=== PATIENT | male | born 1975 | race Caucasian/White ===

== ENCOUNTER 2020-07-27 14:10 | Emergency (ER) | payer SELFPAY ==
[2020-07-27] VITALS (10 sets, daily range): BP systolic 152–171; BP diastolic 83–104; PULSE 68–82; RESP 13–26; TEMP 37.1; O2SAT 97–100; BMI 29.5
--- NOTE | 2020-07-27 15:27 | ED.ANXIETY ---
HPI - Anxiety General Chief Complaint: Anxiety Stated Complaint: panic attack, alcohol withdrawal since AM Time Seen by Provider: 07/27/20 15:17 Source: patient Mode of arrival: Ambulatory Limitations: no limitations History of Present Illness HPI narrative: 44-year-old male comes to the emergency department with complaint of anxiety as well as alcohol abuse and maybe some withdrawal symptoms. Patient states he feels very anxious whenever he stops drinking and when he drinks it helps calm his anxiety. He does not appreciate any tremor, he has never had a loose tenacious or seizures. He states he has been drinking heavily for 19 years. He typically drinks a 5th of alcohol and 2 beers at least 5 nights weekly. He was able to stop for 33 days in August but subsequently relapsed. He is interested and stopping his alcohol use but prefers to do this at home. He states he is anxious but denies depression or suicidal ideation. Patient does describe anxiety about his health. He has not seen a physician in many years. He states with his anxiety he feels very nervous. He is concerned about his health and cirrhosis. He states his prior surgeries include excision of a large cyst in his axilla he denies any other prior surgeries. He states he smokes when he drinks on average this would be about 3 packs weekly, he states he uses marijuana but denies other recreational drugs. He stated he came to the ER today because it was either go to the store and buy a bottle of alcohol or come to the ER to get help. Related Data Previous Rx's Medication Instructions Recorded diazepam [Valium] 5 mg PO BEDTIME PRN #7 tab 07/27/20 Allergies Allergy/AdvReac Type Severity Reaction Status Date / Time No Known Drug Allergies Allergy Verified 07/27/20 14:12 Review of Systems Review of Systems ROS Unobtainable: All systems reviewed & are unremarkable except as noted in HPI and below Patient History Social History Smoking Status: Current some day smoker Smoking Status: Current some day smoker alcohol intake frequency: 3 or more drinks per day (fifth and 2 beers 5 x week.) Exam Narrative Exam Narrative: GEN: well nourished, male, alert and oriented x 3, patient appears to be in mild distress. Patient anxious. HEENT: Atraumatic, pupils are equal round reactive to light, extraocular movements are intact, nares are clear, TMs are clear with no fluid, there is no conjunctival pallor. Throat is clear without any exudates, erythema, tonsillar enlargement or uvular deviation HEART: Regular rate and rhythm without murmur, clicks, rubs. Pulses are equal in upper and lower extremities LUNGS:Lungs clear to auscultation, no wheezes, rales, crackles, chest moves symmetrically ABD:bowel sounds normal, soft, non-tender, no guarding, rebound, rigidity, no masses noted, no hepatosplenomegaly :No CVA tenderness MSCL: Non-tender, no muscle atrophy, muscles strength 5/5 upper and lower extremities, full range of motion, NEURO:CN 2-12 intact, sensation normal, no tremor appreciated, normal gait. PSYCH: anxiety, no suicidal ideation, no hallucinations. Initial Vital Signs Initial Vital Signs: Vital Signs Temperature 98.7 F 07/27/20 14:12 Pulse Rate 82 07/27/20 14:12 Respiratory Rate 18 07/27/20 14:12 Blood Pressure 171/104 H 07/27/20 14:12 Pulse Oximetry 100 07/27/20 14:12 Course Orders Ordered: ED Orders 07/27/20 14:15 EKG-12 Lead Stat 07/27/20 14:45 Complete Blood Count AUTO DIFF Stat Comprehensive Metabolic Panel Stat Ethanol (ETOH) Stat Lipase Stat Thyroid Stimulating Hormone Stat 07/27/20 15:50 Consult to COPING MACHINE ASSEMBLER - Summer Law Clerk Stat 07/27/20 15:56 Urine Drug Screen, Rapid Stat Vital Signs Vital signs: Vital Signs - 8 hr 07/27/20 14:12 07/27/20 14:46 07/27/20 14:47 Temperature 98.7 F Pulse Rate 82 82 78 Respiratory Rate 18 17 13 Blood Pressure 171/104 H 152/88 H Pulse Oximetry 100 100 99 07/27/20 15:00 07/27/20 15:30 07/27/20 16:00 Temperature Pulse Rate 75 69 73 Respiratory Rate 18 14 16 Blood Pressure 155/95 H 153/99 H Pulse Oximetry 100 99 99 07/27/20 16:30 07/27/20 16:46 07/27/20 17:00 Temperature Pulse Rate 68 74 73 Respiratory Rate 16 22 26 H Blood Pressure 162/83 H Pulse Oximetry 99 98 97 07/27/20 17:58 Temperature Pulse Rate 70 Respiratory Rate 18 Blood Pressure 159/99 H Pulse Oximetry 98 MDM - Anxiety Lab Data Result diagrams: 07/27/20 14:45 07/27/20 14:45 Labs: Lab Results 07/27/20 07/27/20 07/27/20 Range/Units 14:45 14:45 14:45 WBC 11.7 H (4.5-11.0) X10^3/uL RBC 4.77 (4.5-5.9) X10^6/uL Hgb 13.6 (13.5-17.5) g/dL Hct 41.3 (41-53) % MCV 86.7 (80-100) fL MCH 28.5 (26-34) PG MCHC 32.8 (30-36) % RDW 13.5 (11.6-14.8) % Plt Count 255 (150-400) X10^3/uL Neut % (Auto) 82.1 H (50-75) % Lymph % (Auto) 11.9 L (25-40) % Pacific % (Auto) 5.7 (3-14) % Eos % (Auto) 0.1 L (2-4) % Baso % (Auto) 0.2 (0-2) % Neut # (Auto) 9600 H (1788-7696) /uL Lymph # (Auto) 1400 (1984-8173) /uL Pacific # (Auto) 700 (0-900) /uL Eos # (Auto) 0 (0-450) /uL Baso # (Auto) 0 (0-100) /uL Sodium 134 L (137-145) mmol/L Potassium 3.9 (3.4-5.1) mmol/L Chloride 102 (98-107) mmol/L Carbon Dioxide 27 (22-32) mmol/L BUN 16 (9-20) mg/dL Creatinine 0.69 (0.66-1.25) mg/dL Estimated GFR > 60.0 (>60) mL/min BUN/Creatinine Ratio 23.2 H (6-22) Glucose 142 H (70-100) mg/dL Calcium 9.9 (8.4-10.2) mg/dL Total Bilirubin 0.7 (0.2-1.3) mg/dL AST 38 (17-59) IU/L ALT 37 (<50) IU/L Alkaline Phosphatase 69 (38-126) U/L Total Protein 7.8 (6.3-8.2) g/dL Albumin 4.8 (3.5-5.0) g/dL Globulin 3.0 (1.7-4.1) g/dL Albumin/Globulin Ratio 1.6 (1.0-2.8) Lipase 53 (23-300) U/L TSH 3.78 (0.47-4.68) uIU/mL U Opiates 300ng/mL cut (Negative) Ur Oxycodone Screen (Negative) Urine Methadone Screen (Negative) Ur Barbiturates Screen (Negative) U Tricyclic Antidepress (Negative) Ur Phencyclidine Scrn (Negative) Ur Amphetamines Screen (Negative) U Methamphetamines Scrn (Negative) Ur MDMA Scrn (Ecstasy) (Negative) U Benzodiazepines Scrn (Negative) Urine Cocaine Screen (Negative) U Marijuana (THC) Screen (Negative) Ethyl Alcohol < 10 ( - 10) mg/dL 07/27/20 Range/Units 15:56 WBC (4.5-11.0) X10^3/uL RBC (4.5-5.9) X10^6/uL Hgb (13.5-17.5) g/dL Hct (41-53) % MCV (80-100) fL MCH (26-34) PG MCHC (30-36) % RDW (11.6-14.8) % Plt Count (150-400) X10^3/uL Neut % (Auto) (50-75) % Lymph % (Auto) (25-40) % Pacific % (Auto) (3-14) % Eos % (Auto) (2-4) % Baso % (Auto) (0-2) % Neut # (Auto) (8173-7713) /uL Lymph # (Auto) (0713-9030) /uL Pacific # (Auto) (0-900) /uL Eos # (Auto) (0-450) /uL Baso # (Auto) (0-100) /uL Sodium (137-145) mmol/L Potassium (3.4-5.1) mmol/L Chloride (98-107) mmol/L Carbon Dioxide (22-32) mmol/L BUN (9-20) mg/dL Creatinine (0.66-1.25) mg/dL Estimated GFR (>60) mL/min BUN/Creatinine Ratio (6-22) Glucose (70-100) mg/dL Calcium (8.4-10.2) mg/dL Total Bilirubin (0.2-1.3) mg/dL AST (17-59) IU/L ALT (<50) IU/L Alkaline Phosphatase (38-126) U/L Total Protein (6.3-8.2) g/dL Albumin (3.5-5.0) g/dL Globulin (1.7-4.1) g/dL Albumin/Globulin Ratio (1.0-2.8) Lipase (23-300) U/L TSH (0.47-4.68) uIU/mL U Opiates 300ng/mL cut Negative (Negative) Ur Oxycodone Screen Negative (Negative) Urine Methadone Screen Negative (Negative) Ur Barbiturates Screen Negative (Negative) U Tricyclic Antidepress Negative (Negative) Ur Phencyclidine Scrn Negative (Negative) Ur Amphetamines Screen Negative (Negative) U Methamphetamines Scrn Negative (Negative) Ur MDMA Scrn (Ecstasy) Negative (Negative) U Benzodiazepines Scrn Negative (Negative) Urine Cocaine Screen Negative (Negative) U Marijuana (THC) Screen Positive H (Negative) Ethyl Alcohol ( - 10) mg/dL MDM Narrative Medical decision making narrative: 44 year old male with admitted alcohol abuse and description of anxiety. Unclear if he is having just anxiety or maybe a little bit of withdrawal in combination he states he does drink 2 calm his anxiety. He is not expressing interest in inpatient treatment but is interested in possibly prescription. We did discuss if he would be willing to chat with social Work about possible resources for mental health as well as outpatient detox resources. Patient seen by social work, offered multiple resources. We did review his labs his findings today. I encouraged him to follow up with primary care to help with his anxiety as well as his medical issues which he may have hypertension although this may be a little bit of withdrawal as well. He does not appear to be in active withdrawals. Plan for short course of benzodiazepine to help with anxiety/sleep which may also help with any withdrawal symptoms patient was encouraged not to take this medication if he is actively drinking alcohol. Discharge Plan Departure Patient Disposition: Home Clinical Impression: Alcohol abuse, continuous drinking behavior, Acute anxiety Instructions: DI for Alcohol Use Disorder Activity Restrictions/Additional Instructions: I recommend you follow-up with either the resources provided or primary care physician for assistance in stopping your alcohol use. Patient's will often benefit with some counseling or medication treatment for anxiety to help make you more successful in your goal of becoming sober. Take medication as prescribed, this medication can make you sleepy do not drive, perform hazardous activities or make any major decisions while taking it. Return to the ER for lightheadedness, passing out, severe chest pain, shortness of breath, persistent vomiting, black or bloody stools swelling of her extremities, seizures, hallucinations or other new or concerning symptoms. If you feel you need to go to [facility]. Call had of time ([phone]) to inquire about an available bed. If there are no beds called daily and 9 AM and 9 PM to check on bed availability. If you're feeling suicidal or having suicidal thoughts, contact the suicide hotline (this number is the resource/self referral number for community resources also). . [facility] cotact is [phone] for services. You may also contact Juan J bernstein manager social services for assistance or resources at [phone]. [email or web address] is also an online resource for findings counseling. Prescriptions: New diazepam [Valium] 5 mg tablet 5 mg PO BEDTIME PRN (Reason: sleep) Qty: 7 RF: 0
[2020-07-27 15:53] LABS: Add Manual Diff / Slide Review NO; Basophils Absolute Auto 0 /uL (0-100); Basophils Percent Auto 0.2 % (0-2); Eosinophils Absolute Auto 0 /uL (0-450); Eosinophils Percent Auto 0.1 % (2-4); Hematocrit 41.3 % (41-53); Hemoglobin 13.6 g/dL (13.5-17.5); Lymphocytes Absolute Auto 1400 /uL (1100-4500); Lymphocytes Percent Auto 11.9 % (25-40); Mean Corpuscular HGB Conc 32.8 % (30-36); Mean Corpuscular Hemoglobin 28.5 PG (26-34); Mean Corpuscular Volume 86.7 fL (80-100); Monocytes Absolute Auto 700 /uL (0-900); Monocytes Percent Auto 5.7 % (3-14); Neutrophils Absolute Auto 9600 /uL (1500-7000); Neutrophils Percent Auto 82.1 % (50-75); Platelet Count 255 X10^3/uL (150-400); Red Blood Cell Count 4.77 X10^6/uL (4.5-5.9); Red Cell Distribution Width 13.5 % (11.6-14.8); White Blood Cell Count 11.7 X10^3/uL (4.5-11.0)
[2020-07-27 15:59] LABS: Alanine Aminotransferase 37 IU/L (<50); Albumin 4.8 g/dL (3.5-5.0); Albumin Globulin Ratio 1.6 (1.0-2.8); Alkaline Phosphatase 69 U/L (38-126); Aspartate Aminotransferase 38 IU/L (17-59); BUN Creatinine Ratio 23.2 (6-22); Bilirubin Total 0.7 mg/dL (0.2-1.3); Blood Urea Nitrogen 16 mg/dL (9-20); Calcium 9.9 mg/dL (8.4-10.2); Carbon Dioxide 27 mmol/L (22-32); Chloride 102 mmol/L (98-107); Estimated Glomerular Filt Rate > 60.0 mL/min (>60); Ethanol (ETOH) < 10 mg/dL; Glucose 142 mg/dL (70-100); HEMOLYSIS < 15 (0-50); Lipase 53 U/L (23-300); Potassium 3.9 mmol/L (3.4-5.1); Sodium 134 mmol/L (137-145); Total Protein 7.8 g/dL (6.3-8.2)
[2020-07-27 16:12] LABS: Ur Creatinine Normal (Normal); Ur Specific Gravity Normal (Normal); Urine pH Normal (Normal)
[2020-07-27 16:13] LABS: UR Morphine/Opiate cutoff 300 Negative (Negative); Urine Amphetamines Negative (Negative); Urine Barbiturates Negative (Negative); Urine Benzodiazepines Negative (Negative); Urine Cocaine Negative (Negative); Urine MDMA Negative (Negative); Urine Methadone Negative (Negative); Urine Methamphetamines Negative (Negative); Urine Oxycodone Negative (Negative); Urine Phencyclidine Negative (Negative); Urine Tetrahydrocannabinol Positive (Negative); Urine Tricyclic Antidepressant Negative (Negative)
[2020-07-27 16:30] LABS: Thyroid Stimulating Hormone 3.78 uIU/mL (0.47-4.68)
--- NOTE | 2020-07-27 16:48 | PC.NURSE ---
Pt given water to drink. BEAM RACKER at bedside talking to pt.
--- NOTE | 2020-07-27 17:42 | CM.SWNOTE ---
DAY CARE DIRECTOR Assessment DAY CARE DIRECTOR - Music Leader Assessment DAY CARE DIRECTOR - Music Leader Assessment Start: 07/27/20 17:30 Freq: Status: Active Protocol: Document 07/27/20 17:30 SHELDON (Rec: 07/27/20 17:41 SHELDON [id number]) DAY CARE DIRECTOR/Music Leader Assessment Time Spent with Patient Start date 07/27/20 Visit Start Time 16:30 End date 07/27/20 Visit End Time 17:10 Total time Care Management spent on 40 patient visit-in minutes Substance Abuse Screening Include Onset, Duration, Intensity Presenting Problem Patient presents to ED due to anxiety and ETOH use/ withdrawal. Patient reports he has been a heavy drinker since age 18 and reports drinking 1 pint/daily of hard liquor. Patient states his ETOH use alleviates his anxiety when I'm drunk but he becomes very anxious after with a particular focus on his physical health. Precipitating Event(s) Patient became anxious after feeling some inflammation in his liver. Patient states he could not de-escalate from anxiety and came to the ED instead of buying more ETOH. Patient Strengths Patient is motivated to discontinue ETOH use and has done so in the past. Current Behavioral Health Provider(s) None Include Facility, Provider, Ph. # Family Hx of Behavioral Abuse None Rehab Facilities? ((Date(s), Location(s) None ) History of Withdrawal? Seizures? states mental addiction I' m not physically addicted. Longest Period of Sobriety 33 days Psychosocial information & Support Patient is a44 y/o male who Systems lives in an [place] that he rents from his brother. Patient has significant hx of ETOH use, but reports that he usually drinks alone and/or at home. Patient reports he has a supportive family and that his brother struggles with anxiety as well. School/Work Patient works at a local [employer]. Patient reports he does not drink at work or at his place of work, and his ETOH use has never impacted his employment. Legal Concerns Legal Matters - Outstanding Issues none. Mental Status Orientation (Person/Place/Time) Oriented x3 Stated Mood Anxious Affect (Congruent with Mood?) Anxious, stable, normal range, congruent Thought Content - Specify/Describe Patient explains his anxiety Obsessions, Delusions, Hallucinations is focused on liver inflammation after drinking. Patient describes using his liver inflammation as a gauge in considering his ETOH consumption. No hallucinations /obsessions/delusions observed or reported. Thought Processes (Suldsdy-Ayruuino-Ilnb Coherent Eacdswdc-Llleqxgr-Mivogfcdrf- Mdgxwjlyfocfpf-Iodhhip-Vcdjstcpqqbe- Thought Blocking) Speech (Kqvxzk-Pypf-Hbmtsnu-Rapid-Soft- Rapid Loud-Pressured) Motor (Ujsdpd-Nodfwfwzh-Fyjn-Other) Excessive Insight (Fyik-Kgot-Eseg/Limited) Good Judgement (Zpwt-Apem-Wgmk/Limited) Fair-poor Impulse Control (Adequate-Impaired) Adequate in assessment Memory (Hngtyvbsv-Nsrdak-Ygzbwo, Intact for interview, not Impaired-Intact) formally assessed. Concentration (Intact-Impaired) Intact Attention (Intact-Impaired) Intact Behavior (Appropriate-Inappropriate) Appropriate Risk Assessment Suicidal Ideation (Plan) No Homicidal Ideation (Plan) No Comment Patient denies SI, HI. Intervention Intervention DAY CARE DIRECTOR meets with patient. Patient discusses hx of anxiety and ETOH use, and describes motivation to quit to help maintain his physical health. Patient uses a few de- escalation techniques to help reduce patient's anxiety including modelling slow speech and full breaths. Patient states he is open to exploring resources for counseling and support around his ETOH use, but states he would like to try to discontinue his use without assistance prior to utilizing support. DAY CARE DIRECTOR and patient explore what this might look like and discuss how to address thoughts about ETOH use. DAY CARE DIRECTOR and patient discuss anxiety and DAY CARE DIRECTOR provides psychoeducation to patient regarding anxiety de- escalation techniques. Patient open to resources in d/c notes. DAY CARE DIRECTOR reviews above with Dr. Cuenca and requests [employer] ( counseling), [facility] (ETOH support), and ED DAY CARE DIRECTOR ( additional resources) be placed in d/c note. Plan RA Plan Patient to d/c to home. DAPHNE Kee
== END 2020-07-27 17:59 | disposition home or self-care (01) ==
PROVIDERS: Emergency Provider Emergency Medicine
DX: F10.10 Alcohol abuse, uncomplicated (principal); F12.90 Cannabis use, unspecified, uncomplicated; F41.9 Anxiety disorder, unspecified; R07.9 Chest pain, unspecified
CPT/HCPCS: 80053; 80305; 80320; 83690; 84443; 85025; 93005; 93010; 99283; 99284